=== PATIENT | female | born 2000 | race Two or more races ===

== ENCOUNTER 2024-05-02 08:50 | Emergency (ER) | payer BC, SELFPAY ==
[2024-05-02 09:00] VITALS: BP 129/73; PULSE 99; RESP 18; TEMP 36.8; O2SAT 99
--- NOTE | 2024-05-02 09:12 | ED_ITS ---
HPI - Skin/Abscess/Foreign Bdy General Chief complaint: Skin/Abscess/Foreign Body Stated complaint: Allergic Reaction Time Seen by Provider: 05/02/24 09:06 Source: patient, RN notes reviewed and old records reviewed Mode of arrival: ambulatory Limitations: no limitations History of Present Illness HPI narrative: Patient presents today complaining of a severely pruritic rash to the posterior scalp and neck that has been present for several weeks. She was seen by her PCP approximately 3 weeks ago and diagnosed with contact dermatitis and possible cellulitis and was placed on a Medrol Dosepak and Keflex. Patient finished most of the Medrol and approximately half of the antibiotics but continues to have symptoms. Denies pain or drainage. She has not followed up with her PCP. PCP recommended following up with Dermatology if symptoms do not improve Related Data Home Medications ?Medication ?Instructions ?Recorded ?Confirmed ?Last Taken ?Type fluoxetine 40 mg capsule 40 mg PO DAILY 01/24/24 05/02/24 Unknown History norethindrone 1 mg-ethinyl 1 tablet PO DAILY 03/17/24 05/02/24 Unknown History estradiol 20 mcg (21)-iron 75 mg (7) tablet (Blisovi Fe 06/08 (28)) Allergies Allergy/AdvReac Type Severity Reaction Status Date / Time No Known Allergies Allergy Verified 05/02/24 09:03 Review of Systems Review of Systems: CONSTITUTIONAL: Denies body aches, fever, chills, or sweats. EYES: Denies visual changes, redness, or discharge. ENT: Denies rhinorrhea, congestion, sore throat, or otalgia. CARDIOVASCULAR: Denies chest pain, palpitations, or edema. RESPIRATORY: Denies cough or dyspnea. GASTROINTESTINAL: Denies abdominal pain, nausea, vomiting, or diarrhea. GENITOURINARY: Denies dysuria or hematuria. SKIN: + pruritic rash MUSCULOSKELETAL: Denies back pain, joint pain, or myalgia. NEUROLOGIC: Denies headache, numbness, tingling, or weakness. PSYCH: Denies depression or anxiety. [facility] Past Medical History Medical History GERD without esophagitis Depression, major, recurrent, moderate Iron deficiency anemia Vitamin D deficiency Family History Family History (Reviewed 05/02/24 @ 09:14 by Valencia Sifuentes, [facility]) Grandparent Depression Hypertension Mother Depression Other Family history of elevated blood lipids Social History Social History (Reviewed 05/02/24 @ 09:14 by Valencia Sifuentes, [facility]) Smoking status: Current every day smoker Tobacco type: e-cigarettes/vaping Second hand tobacco smoke exposure: No Alcohol intake: never Substance use: never Substance use type: does not use Lack of Transportation: No Lack of Food: Never True Current Housing: I Have Housing Concerned About Future Housing: No Difficulty Paying Gas/Electric Bills: No Difficulty Paying for Meds: No Currently Unemployed: No Education: High School Diploma/GED Difficulty w/ Childcare or Family Care: No Living arrangements: with family Occupation/Education: student Gender identity (if verbalized by the patient): Female Agree to blood products: Yes Comments At time of signature, I have reviewed and agree with nursing past medical, surgical, social and family history unless otherwise noted. Please see nursing chart for further information. There is no relevant family history pertinent to the presenting complaint Exam Narrative: GENERAL: Well-appearing, well-nourished, and in no acute distress. HEAD: Normocephalic, atraumatic. EYES: EOMI. No redness or drainage. Conjunctivae normal. ENT: Mucous membranes pink and moist. NECK: Normal AROM. CHEST: No respiratory distress. EXTREMITIES: Normal range of motion. No edema. SKIN: Warm, dry. Capillary refill normal. Normal skin turgor. Large patches of scaly, dry rash with pinpoint scabbing to the posterior scalp and neck. No erythema, crusting, or drainage noted. NEURO: No focal deficits. Alert and oriented x3. Gait steady. PSYCH: Normal affect. No signs of depression or anxiety. Course Course Level of Care: Express Care Visit Vital Signs Vital signs: Vital Signs Temperature 98.2 F 05/02/24 09:00 Pulse Rate 99 05/02/24 09:00 Respiratory Rate 18 05/02/24 09:00 Blood Pressure 129/73 05/02/24 09:00 Pulse Oximetry 99 05/02/24 09:00 Oxygen Delivery Room Air 05/02/24 09:00 Temperature 98.2 F 05/02/24 09:00 Pulse Rate 99 05/02/24 09:00 Respiratory Rate 18 05/02/24 09:00 Blood Pressure 129/73 05/02/24 09:00 Pulse Oximetry 99 05/02/24 09:00 Oxygen Delivery Room Air 05/02/24 09:00 Reviewed MDM - Skin/Abscess/Foreign Bdy MDM Narrative Medical decision making narrative: Review of patient's rash shows no active signs of infection. Will treat with another short course of prednisone for dermatitis versus psoriasis. Recommend following up with PCP then Dermatology if deemed necessary. Also recommend keeping track of rashes progress with photos. Patient agrees with plan. Anticipatory guidance given. Differential Diagnosis Differential diagnosis: Likely abscess of skin or subcutaneous tissue, viral exanthem, dermatophytosis, urticaria, cellulitis, eczema, impetigo, contact dermatitis and other (Psoriasis) Critical Care Time Critical Care Time Critical Care Time: No Discharge Plan Discharge Clinical Impression: Dermatitis Patient Disposition: Home, Self-Care Condition: Stable Instructions: Dermatitis (ED) Additional Instructions: Please take the prednisone as prescribed until gone. You may also take an allergy medications such as Zyrtec, Claritin, or Maryann for itching if needed. Please follow-up with your PCP if symptoms persist. Your blood pressure was elevated above 120/80 today at Urgent Care. This puts you above the threshold for follow up. Please schedule a followup visit with your personal physician as soon as possible, for further evaluation and treatment. Even blood pressure exceeding 120/80 may indicate pre-hypertension. Patient Language: German Prescriptions: New prednisone 20 mg tablet 40 mg PO DAILY 5 Days Qty: 10 0RF No Action norethindrone-e.estradiol-iron [Blisovi Fe 06/08 (28)] 1 mg-20 mcg (21)/75 mg (7) tablet 1 tablet PO DAILY methylprednisolone [Medrol (Abdiel)] 4 mg tablets,dose pack See Rx Instructions PO PER PKG DIR Qty: 21 0RF Rx Instructions: PO PER PKG DIR fluoxetine 40 mg capsule 40 mg PO DAILY Follow-up/Referrals: Shaolnda Galvan MD [Primary Care Provider] - Time of Disposition: 09:17
== END 2024-05-02 09:20 | disposition home or self-care (01) ==
PROVIDERS: Emergency Provider Nurse Practitioner; PCP Family Medicine
DX: L30.9 Dermatitis, unspecified (principal); F17.290 Nicotine dependence, other tobacco product, uncomplicated; F33.9 Major depressive disorder, recurrent, unspecified; D50.9 Iron deficiency anemia, unspecified
CPT/HCPCS: 99213; G0463